=== PATIENT | female | born 1985 | race Caucasian/White ===

== ENCOUNTER 2016-03-14 08:19 | Inpatient (IN) | payer OTHER ==
[~2016-03-14] VITALS: Ht 170.2 cm; Wt 86.6 kg
[~2016-03-14 08:19] MED LIST: ALBU18HF INHALATION; BEN25 PO; DENIES MEDS; EPIN0.3P4 INJ; FAMO-18 PO; PRED20TA PO
[2016-03-14 08:34] LABS: URINE BLOOD (Dip) POC 2+ (NEGATIVE)
[2016-03-14] MEDS ORDERED: SOD CHLORIDE 0.9% 1,000 ML IV STA (08:37)
[2016-03-14] MEDS ORDERED: ONDANSETRON 4 MG INJ IV STA (08:37)
--- NOTE | 2016-03-14 08:37 | ERD ---
ER Documentation Chief Complaint Date/Time DATE: 03/14/16 TIME: 08:25 Chief Complaint GENERALIZED AP STARTED LAST NIGHT HPI 30 y/o female presents to ED for epigastric pain, vomiting that started last night at around 10 PM. Patient stated that her pain is was described as sharp nonradiating 10/10 in rate. Vomited "a lot of times." Patient unable to state number of times she vomited. Unable to state the appearance of her vomitus. She also reports that her symptoms started after eating a home cooked food with meat that is mixed with rice. Also has difficulty walking due to pain. She also added that she felt like she has chills last night but never took her temperature. Did not take any pain medications for her pain. Denies headache, loss of consciousness, dizziness, blurry vision, changes in vision, photophobia, facial pain, ear pain, throat pain, difficulty swallowing, neck pain, shoulder pain, chest pain, cough, hemoptysis, back pain, loss of appetite, hematochezia, diarrhea, constipation, urinary symptoms, , the possibility of being , bladder and bowel incontinences, extremity weakness, extremity tenderness, numbness or tingling sensation, recent travel, recent exposure to illness, recent antibiotic use in the last 3 months, fever. Allergy: NKA PMH: Asthma Family medical history: Denies AO with 1 miscarriage. LMP: "I am on my period right now." Has an IUD. Medications: Albuterol puff. States that she has not used this in a while. Surgery: Cholecystectomy. Primary Social History: Works as a [employer]. Denies smoking, use of alcohol, use of illegal drugs. ROS All systems reviewed and are negative except as per history of present illness. Medications Home Meds Active Scripts Famotidine* (Pepcid*) 20 Mg Tablet, 20 MG PO BID, #30 TAB Prov:GARY HENSON PA-C 11/12/15 Diphenhydramine Hcl* (Benadryl*) 25 Mg Cap, 25 MG PO Q6, #30 CAP Prov:GARY HENSON PA-C 11/12/15 Epinephrine (Epipen 2-Tyree) 0.3 Mg/0.3 Ml Pen.injctr, 1 EA INJ ONCE Y for ALLERGIC REACTION, #1 EA Prov:GARY HENSON PA-C 11/12/15 Prednisone* (Prednisone*) 20 Mg Tab, 40 MG PO DAILY for 5 Days, TAB Prov:GARY HENSON PA-C 11/12/15 Albuterol Sulfate* (Ventolin HFA*) 18 Gm Hfa.aer.ad, 2 PUFF INHALATION Q4H, #1 INHALER Prov:GARY HENSON PA-C 11/12/15 Reported Medications [Denies Meds] No Conflict Check 07/16/10 Allergies Allergies: Coded Allergies: No Known Drug Allergy (Verified Allergy, Mild, 07/16/10) PMhx/Soc History of Surgery: No Anesthesia Reaction: No Hx Neurological Disorder: No Hx Respiratory Disorders: Yes (Asthma) Hx Cardiac Disorders: No Hx Psychiatric Problems: No Hx Miscellaneous Medical Probl: No Hx Alcohol Use: Yes Hx Substance Use: Yes (THC this week) Hx Tobacco Use: Yes FmHx Denies Physical Exam Vitals Vital Signs Date Time Temp Pulse Resp B/P Pulse Ox O2 Delivery O2 Flow Rate FiO2 03/14/16 08:23 98.0 101 18 134/81 99 Physical Exam CONSTITUTIONAL: Well-appearing; well-nourished; in no apparent distress. HEAD: Normocephalic; atraumatic. EYES: Conjunctiva clear, sclera non-icteric, EOM intact. PERRL Ears: Hearing intact. EACs clear, TMs non-bulging, non-inflamed, translucent & mobile, ossicles normal appearance, No obstructions, no erythema, no discharges Nose: No obstructions. No polyps. No external lesions. Mucosa non-inflamed. No external lesions, septum and turbinates normal. No rhinorrhea. No discharges. Frontal sinus is non-tender to palpation. Maxillary sinus is non-tender to palpation. MOUTH: Moist mucous membranes, no lesion, no obstructions, no vesicles, no thrush, patent airway Throat: Uvula in midline. Right tonsil is +1 with no erythema, no exudate. Left tonsil is +1 with no erythema, no exudate. Tolerating secretions well. Good gag reflex. Patent airway. Neck: Supple, without lesions, bruits, or adenopathy. No mass. Thyroid non- enlarged and non-tender to palpation. CHEST: Symmetrical chest. Respirations even and not labored. No retractions noted. CARDIOVASCULAR: Normal S1, S2. RRR. No murmurs, gallops. RESPIRATORY: Normal chest excursion with respiration; breath sounds clear and equal bilaterally; no wheezes, rhonchi, or rales. Breathing even and unlabored. Speaking in clear, full, and complete sentences w/ ease. ABDOMEN: Normal bowel sounds normal. Soft, round, non-distended, non-guarding, no rebound, no organomegaly, no masses, no pulsating abdominal mass. No hernia. No peritoneal signs. Tenderness to epigastric area area and right lower abdominal area to light and deep palpation. : No CVA tenderness. BACK: Symmetrical shoulder. Spine is midline without deformity, tenderness. No evidence of trauma or deformity. PELVIS: Stable pelvis. No evidence of trauma or deformity. MUSCULOSKELETAL: Normal gait and station. No misalignment, asymmetry, crepitation, defects, tenderness, masses, effusions, decreased range of motion, instability, atrophy or abnormal strength or tone in the head, neck, spine, ribs , pelvis or extremities. No calf tenderness. NEUROVASCULAR: Distal pulses are present. Pedal pulse are present, equal, and normal. Capillary refills are < 2 seconds. NEUROLOGIC: Alert and oriented x4. Speaks full and clear sentences. Cranial Nerves II-XII normal. Sensation to pain, touch, and proprioception normal. Grossly unremarkable. No neurologic deficits. Romberg test is negative. PSYCHOLOGICAL: The patients mood and manner are appropriate. No hallucinations , delusions. Not SI. Not HI. Has the capacity to decide for self SKIN: Normal for age and ethnicity; warm; dry; good turgor; no apparent lesions or exudates. No rashes, hives, discoloration. Intact. Result Diagram: 03/14/16 0900 Results 24 hrs Laboratory Tests Test 03/14/16 08:35 03/14/16 09:00 Bedside Urine Blood 2+ Bedside Urine Glucose (UA) Negative Bedside Urine Ketones (LAB) Negative Bedside Urine Leukocyte Esterase (L Trace Bedside Urine Nitrite (LAB) Negative Bedside Urine Protein (LAB) 3+ Bedside Urine pH (LAB) >=9.0 Basophils # 0.010^3/ul Basophils % 0.2% Eosinophils # 0.010^3/ul Eosinophils % 0.1% Hematocrit 43.0% Hemoglobin 14.5g/dl Lymphocytes # 1.210^3/ul Lymphocytes % 11.1% Mean Corpuscular Hemoglobin 29.5pg Mean Corpuscular Hemoglobin Concent 33.6g/dl Mean Corpuscular Volume 87.8fl Mean Platelet Volume 9.3fl Monocytes # 0.310^3/ul Monocytes % 2.9% Neutrophils # 9.010^3/ul Neutrophils % 85.7% Nucleated Red Blood Cells # 0.010^3/ul Nucleated Red Blood Cells % 0.0/100WBC Platelet Count 30670^3/UL Red Blood Count 4.9010^6/ul Red Cell Distribution Width 13.8% White Blood Count 10.510^3/ul Current Medications Medications (Trade) Dose Ordered Sig/Lori Route PRN Reason Start Time Stop Time Status Last Admin Dose Admin Sodium Chloride (NS) 1,000 ml @ 1,000 mls/hr Q1H STAT IV 03/14/16 08:37 03/14/16 09:36 DC 03/14/16 08:47 Ondansetron HCl (Zofran Inj) 4 mg ONCE STAT IV 03/14/16 08:37 03/14/16 08:41 DC 03/14/16 08:46 Procedures/MDM Examination: Unremarkable examination except epigastric tenderness, right lower abdominal tenderness, difficulty walking due to pain. Case and medical management was discussed with supervising doctor. He agreed with present treatment and after care. Disease process, medical treatment was explained to the patient and family member. They verbalized understanding and agreed with the diagnostic tests, medical treatment, and follow-up care. Radiology: FINDINGS: The lung bases are clear of any infiltrate or nodule. No effusion is seen. The liver is of normal size, contour and attenuation with no mass or ductal dilatation. Gallbladder has been removed. No splenic, adrenal or pancreatic abnormalities present. Kidneys are of normal size and contour. No hydronephrosis, calculus or masses seen. Ureters are of normal course and caliber with no stone. No bladder mass or stone is present. IUD is present within the endometrial canal. No adnexal mass is seen. There is no aneurysm. No adenopathy is present. No bowel mass is visualized. The colon and rectum are decompressed. Noted is a long segment of moderate to severely distended small bowel. There is fecalization with a smooth sharply demarcated transition present anterior to the sacrum on image 105 series 3. No bowel mass is visualized. The ileum is decompressed. The appendix is not confidently visualized, however, no inflamed appendix is noted. No phlegmon, ascites or pneumoperitoneum is present. The osseous structures are intact. IMPRESSION: Mid to distal small bowel obstruction as above. Post cholecystectomy. POC urine : Negative Urinalysis: Treatment: 1 L of normal saline IV. 4 mg of Zofran IV. Re-evaluation: Consultation: None Differential diagnosis: Appendicitis versus ovarian torsion versus ovarian cyst versus small bowel obstruction versus diverticulosis versus diverticulitis versus epigastric pain versus pancreatitis versus gastritis Medical decision [id number] y/o female presents to ED for epigastric pain with vomiting. Final diagnosis small bowel obstruction. Endorse to Dr. Bo Thomas, who accepted the care. Departure Condition: Stable SHANKAR RIDDLE Mar 14, 2016 08:37
--- NOTE | 2016-03-14 09:31 | RADRPT ---
PROCEDURE: CT abdomen and pelvis without contrast. CLINICAL INDICATION: Abdominal Pain TECHNIQUE: CT scan of the abdomen and pelvis without contrast was performed and is reconstructed a t 5 mm contiguous axial intervals from the dome of the diaphragm to the inferior pubic rami.. The p atient was scanned without intravenous contrast. Sagittal and coronal reformatted images were obtai dayo from the axial source images. The calculated radiation dose measures 1094 mGy centimeters. The C TDI measures 420 mGy. COMPARISON: None. FINDINGS: The lung bases are clear of any infiltrate or nodule. No effusion is seen. The liver is of normal size, contour and attenuation with no mass or ductal dilatation. Gallbladder has been removed. No splenic, adrenal or pancreatic abnormalities present. Kidneys are of normal size and contour. No hydronephrosis, calculus or masses seen. Ureters are o f normal course and caliber with no stone. No bladder mass or stone is present. IUD is present with in the endometrial canal. No adnexal mass is seen. There is no aneurysm. No adenopathy is present. No bowel mass is visualized. The colon and rectum are decompressed. Noted is a long segment of mod erate to severely distended small bowel. There is fecalization with a smooth sharply demarcated tra nsition present anterior to the sacrum on image 105 series 3. No bowel mass is visualized. The ile um is decompressed. The appendix is not confidently visualized, however, no inflamed appendix is no terrence. No phlegmon, ascites or pneumoperitoneum is present. The osseous structures are intact. IMPRESSION: Mid to distal small bowel obstruction as above. Post cholecystectomy. .Alonso Henson MD, Date Time Electronically viewed and signed by .Alonso Henson MD, MD on 03/14/2016 09:30 .A/
[2016-03-14 09:33] LABS: BASOPHILS % 0.2 % (0.0-2.0); EOSINOPHILS % 0.1 % (0.0-7.0); HEMOGLOBIN 14.5 g/dl (12.0-16.0); LYMPHOCYTES # 1.2 10^3/ul (0.8-2.9); LYMPHOCYTES % 11.1 % (15.0-51.0); MEAN CORPUSCULAR HEMOGLOBIN 29.5 pg (29.0-33.0); MEAN CORPUSCULAR HGB CONC 33.6 g/dl (32.0-37.0); MEAN CORPUSCULAR VOLUME 87.8 fl (82.0-101.0); MEAN PLATELET VOLUME 9.3 fl (7.4-10.4); MONOCYTE # 0.3 10^3/ul (0.3-0.9); MONOCYTES % 2.9 % (0.0-11.0); NEUTROPHILS % 85.7 % (39.0-77.0); PLATELET COUNT 388 10^3/UL (140-440); RED CELL DISTRIBUTION WIDTH 13.8 % (11.5-14.5); UNCORRECTED WBC 10.5 10^3/ul (4.8-10.8); WHITE BLOOD COUNT 10.5 10^3/ul (4.8-10.8)
[2016-03-14 09:34] LABS: ADD UMIC YES; URINE BILIRUBIN (Dip) NEGATIVE (NEGATIVE); URINE BLOOD (Dip) 2+ (NEGATIVE); URINE COLOR LT. YELLOW (YELLOW); URINE GLUCOSE (Dip) NEGATIVE (NEGATIVE); URINE KETONES (Dip) NEGATIVE (NEGATIVE); URINE LEUKOCYTE ESTERASE (Dip) TRACE (NEGATIVE); URINE NITRITE (Dip) NEGATIVE (NEGATIVE); URINE TOTAL PROTEIN (Dip) 2+ (NEGATIVE); URINE UROBILINOGEN (Dip) 1.0 E.U./dL (0.1-1.0)
[2016-03-14 09:41] LABS: CONDITION 1
[2016-03-14] MEDS ORDERED: morphine 4 MG/ML VIAL IV STA ×2 (09:43→11:03)
[2016-03-14 09:49] LABS: ALBUMIN 4.7 g/dl (3.3-4.9)
[2016-03-14 09:50] LABS: POTASSIUM 4.4 mmol/L (3.5-5.1)
[2016-03-14 09:52] LABS: ALBUMIN/GLOBULIN RATIO 1.14; BILIRUBIN,INDIRECT 0.5 mg/dl (0-1.1); BILIRUBIN,TOTAL 0.5 mg/dl (0.2-1.3); CALCIUM 9.7 mg/dl (8.4-10.2); CREATININE 0.65 mg/dl (0.44-1.00); TOTAL PROTEIN 8.8 g/dl (6.1-8.1)
[2016-03-14 10:02] LABS: BACTERIA,URINE FEW; URINE RBCS 0-2 /HPF (0)
[2016-03-14 10:03] LABS: MUCUS,URINE FEW
[2016-03-14] MEDS ORDERED: LIDOCAINE 2% JELLY 5 ML TOP ONE (10:30)
[2016-03-14 11:26] VITALS: TEMP 98.7
[2016-03-14] MEDS ORDERED: morphine 2 MG INJ IV PRN (11:30)
[2016-03-14] MEDS ORDERED: MAGNESIUM HYDROXIDE 30ML CUP PO PRN (11:30)
[2016-03-14] MEDS ORDERED: BISACODYL 10 MG SUPP PR PRN (11:30)
[2016-03-14] MEDS ORDERED: DOCUSATE SODIUM 100 MG CAP PO PRN (11:30)
[2016-03-14] MEDS ORDERED: NACL 0.9% 3 ML SYG IV SCH (11:30)
[2016-03-14] MEDS ORDERED: HYDROCODONE/APAP (5/325) TAB PO PRN ×2 (11:30)
[2016-03-14] MEDS ORDERED: ACETAMINOPHEN 650 MG SUPP PR PRN (11:30)
[2016-03-14] MEDS ORDERED: ACETAMINOPHEN 325 MG TAB PO PRN (11:30)
--- NOTE | 2016-03-14 11:35 | EN ---
Date/Time of Note Date/Time of Note DATE: 03/14/16 TIME: 11:31 ER Progress Note HPI: 30-year-old woman presents with 2-3 days of multiple episodes of vomiting and abdominal cramping. She feels dehydrated. CT scan of the abdomen and pelvis was just performed revealing mid to distal small bowel obstruction. She denies fevers or chills, no melena or blood per rectum, no chest pain or shortness of breath. Last meal was over 12 hours ago. Past medical history: Surgical history of cholecystectomy and previous small bowel obstruction treated surgically at 8 months of age Physical exam: GENERAL: Well-developed, well-nourished, moderate discomfort, afebrile HEENT: Moist mucous membranes, pink conjunctiva, no cervical spine tenderness or step-off deformities, no goiter, no jaundice or icterus, extraocular movements intact without pain. No submandibular induration, and no pharyngeal erythema NEURO: Alert and oriented 3, cranial nerves II through XII intact bilaterally, pupils equal round reactive to light, no focal deficits or facial asymmetry, sensation intact distally Strength 5/5 in upper and lower extremities bilaterally CARDIAC: Regular rate and rhythm, no murmurs rubs or gallops LUNGS: Clear bilaterally no wheezing crackles or stridor ABDOMEN: Tender to touch with voluntary guarding, no rigidity, no rebound, no psoas sign no obturator sign. Normoactive bowel sounds SKIN: Warm and dry to touch, no abrasions, contusions, or hematomas, no lacerations, no ecchymosis, no target lesions, and without ulcers EXTREMITIES: No clubbing cyanosis or edema, calves are bilaterally symmetrical, no Homans sign, no popliteal cord sign. Distal pulses equal and bilateral PSYCH: Normal affect without agitation or irritability Medical decision making: IV line was established patient was placed on cardiac technician rhythm strip revealed a sinus rhythm at about 70 bpm with upright P and T waves. Patient was treated with IV fluids, morphine 4 mg IV and Zofran 4 mg. EKG performed, read by me: 73 bpm, normal sinus rhythm, normal axis, no acute ST segment changes, narrow QRS complex, with good R-wave progression in precordial leads. I spoke to the on-call surgeon regarding the patient's presentation and symptomatology he agreed to see the patient. NG tube was ordered by me and placed successfully. Connected to intermittent suction. Patient will be admitted to [facility] under hospitalist team. Diagnostic impression: #1 acute small bowel obstruction 2. Intractable vomiting MISHA SMITH MD Mar 14, 2016 11:35
[2016-03-14 11:47] VITALS: BP 132/75; RESP 20
[2016-03-14] MEDS: ONDANSETRON 4 MG INJ IV PRN ×2 (12:00→19:19)
[2016-03-14] MEDS: D5W-0.45 NACL + KCL 20 MEQ 1,000 ML IV SCH ×3 (12:45→22:08)
--- NOTE | 2016-03-14 12:50 | CONS ---
Date/Time of Note Date/Time of Note DATE: 03/14/16 TIME: 12:44 Assessment/Plan Assessment/Plan Chief Complaint/Hosp Course 30-year-old female with small bowel obstruction likely secondary to adhesions from prior surgery * Patient is currently comfortable, therefore, we'll continue with conservative management * Continue NG tube, IV fluid hydration, pain control as needed * Will order a small bowel follow-through Discussed the above with the patient, nurse and primary care team. Discussed the possibility for surgical intervention in cases of failure of conservative management. The patient understands and agrees to treatment plan as outlined. Further recommendations will be made based on the patient's clinical course and results of diagnostic studies. 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 The patient states her pain started at approximately 10 PM the night before admission. She described it as being located in the epigastric area. It was associated with multiple episodes of nonbilious vomiting. She states her last bowel movement was yesterday. She denies any fever/chills. She denies any prior episodes similar pain in the past. On arrival to the emergency room a CT scan of the abdomen and pelvis showed findings consistent with small bowel obstruction. Nasogastric tube has been placed. She states she has had an improvement in her abdominal pain since placement of the NG tube. A 14 point review systems was conducted and was negative except for that which is mentioned in history of present illness. Past Medical History As mentioned in history of present illness Past Surgical History Past Surgical Hx: cholecystectomy, other (abdominal surgery for volvulus as an 8-month-old) Family History Significant Family History: no pertinent family hx Social History Smoking Status: Current every day smoker Exam/Review of Systems Vital Signs Vitals Vital Signs Date Time Temp Pulse Resp B/P Pulse Ox O2 Delivery O2 Flow Rate FiO2 03/14/16 11:47 98.6 91 20 132/75 98 03/14/16 11:26 Room Air Exam GENERAL: Awake, alert, oriented 3. No acute distress. SKIN: No jaundice. HEENT: PERRLA, EOMI, No Scleral Icterus. Nasogastric tube is in place with scant drainage. NECK: Supple without JVD CARDIOVASCULAR: S1S2, regular rate and rhythm. No murmurs appreciated. RESPIRATORY: Clear to auscultation bilaterally. ABDOMEN: Soft, bowel sounds hypoactive, nondistended, nontender to palpation. EXTREMITIES: Free range of motion 4. No cyanosis, edema, or clubbing. NEUROLOGIC: Cranial nerves II-XII are intact. Sensation is intact grossly. Results Result Diagram: 03/14/16 0900 03/14/16 0900 Results 24 hrs Laboratory Tests Test 03/14/16 08:35 03/14/16 09:00 Bedside Urine Blood 2+ H Bedside Urine Glucose (UA) Negative Bedside Urine Ketones (LAB) Negative Bedside Urine Leukocyte Esterase (L Trace H Bedside Urine Nitrite (LAB) Negative Bedside Urine Protein (LAB) 3+ H Bedside Urine pH (LAB) >=9.0 Alanine Aminotransferase (ALT/SGPT) 37 Albumin 4.7 Albumin/Globulin Ratio 1.14 Alkaline Phosphatase 82 Anion Gap 19 H Aspartate Amino Transf (AST/SGOT) 37 Basophils # 0.0 Basophils % 0.2 Blood Urea Nitrogen 11 Calcium Level 9.7 Carbon Dioxide Level 29 Chloride Level 99 Creatinine 0.65 Direct Bilirubin 0.00 Eosinophils # 0.0 Eosinophils % 0.1 Globulin 4.10 H Glucose Level 121 Hematocrit 43.0 Hemoglobin 14.5 Indirect Bilirubin 0.5 Lipase 44 Lymphocytes # 1.2 Lymphocytes % 11.1 L Mean Corpuscular Hemoglobin 29.5 Mean Corpuscular Hemoglobin Concent 33.6 Mean Corpuscular Volume 87.8 Mean Platelet Volume 9.3 Monocytes # 0.3 Monocytes % 2.9 Neutrophils # 9.0 H Neutrophils % 85.7 H Nucleated Red Blood Cells # 0.0 Nucleated Red Blood Cells % 0.0 Platelet Count 388 Potassium Level 4.4 Red Blood Count 4.90 Red Cell Distribution Width 13.8 Sodium Level 143 Total Bilirubin 0.5 Total Protein 8.8 H Urine Bacteria FEW Urine Bilirubin NEGATIVE Urine Clarity CLEAR Urine Color LT. YELLOW Urine Epithelial Cells FEW Urine Glucose NEGATIVE Urine Hemoglobin 2+ H Urine Ketones NEGATIVE Urine Leukocyte Esterase TRACE H Urine Microscopic RBC 0-2 Urine Microscopic WBC 0-2 Urine Mucus FEW Urine Nitrite NEGATIVE Urine Specific [place] 1.010 Urine Total Protein 2+ H Urine Urobilinogen 1.0 E.U./dL Urine pH 8.5 White Blood Count 10.5 Medications Medications Current Medications Potassium Chloride/Dextrose/ Sod Cl (D5-1/2ns + KCl 20 Meq) 1,000 ml @ 75 mls/ hr [id number] IV ; Start 03/14/16 at 11:18 Ondansetron HCl (Zofran Inj) 4 mg Q6H PRN IV NAUSEA AND/OR VOMITING Last administered on 03/14/16t 12:00; Admin Dose 4 MG; Start 03/14/16 at 11:30 Acetaminophen (Tylenol Tab) 650 mg Q6H PRN PO PAIN LEVEL 1-3 OR FEVER; Start at 11:30 Acetaminophen (Tylenol Supp) 650 mg Q6H PRN [place] PAIN LEVEL 1-3 OR FEVER; Start 03/14/16 at 11:30 Acetaminophen/ Hydrocodone Bitart ([place] (5/325)) 1 tab Q6H PRN PO MODERATE PAIN LEVEL 4-6; Start 03/14/16 at 11:30 Acetaminophen/ Hydrocodone Bitart ([place] (5/325)) 2 tab Q6H PRN PO SEVERE PAIN LEVEL 7-10; Start 03/14/16 at 11:30 Morphine Sulfate (morphine) 2 mg Q4H PRN IV SEVERE PAIN LEVEL 7-10; Start 03/14 at 11:30 Bisacodyl (Dulcolax Supp) 10 mg DAILY PRN [place] CONSTIPATION; Start 03/14/16 at 11 :30 Pantoprazole (Protonix Iv) 40 mg DAILY@06 IV ; Start 03/15/16 at 06:00 Procedures Procedures PROCEDURE: CT abdomen and pelvis without contrast. CLINICAL INDICATION: Abdominal Pain TECHNIQUE: CT scan of the abdomen and pelvis without contrast was performed and is reconstructed at 5 mm contiguous axial intervals from the dome of the diaphragm to the inferior pubic rami.. The patient was scanned without intravenous contrast. Sagittal and coronal reformatted images were obtained from the axial source images. The calculated radiation dose measures 1094 mGy centimeters. The CTDI measures 420 mGy. COMPARISON: None. FINDINGS: The lung bases are clear of any infiltrate or nodule. No effusion is seen. The liver is of normal size, contour and attenuation with no mass or ductal dilatation. Gallbladder has been removed. No splenic, adrenal or pancreatic abnormalities present. Kidneys are of normal size and contour. No hydronephrosis, calculus or masses seen. Ureters are of normal course and caliber with no stone. No bladder mass or stone is present. IUD is present within the endometrial canal. No adnexal mass is seen. There is no aneurysm. No adenopathy is present. No bowel mass is visualized. The colon and rectum are decompressed. Noted is a long segment of moderate to severely distended small bowel. There is fecalization with a smooth sharply demarcated transition present anterior to the sacrum on image 105 series 3. No bowel mass is visualized. The ileum is decompressed. The appendix is not confidently visualized, however, no inflamed appendix is noted. No phlegmon, ascites or pneumoperitoneum is present. The osseous structures are intact. IMPRESSION: Mid to distal small bowel obstruction as above. Post cholecystectomy. .Alonso Henson MD, MD Date Time Electronically viewed and signed by .Alonso Henson MD, on 03/14/2016 09: 30 .A/ CC: SHANKAR RIDDLE,KILO Saul MD Mar 14, 2016 12:50
[2016-03-14] MEDS ORDERED: SOD CHLORIDE 0.9% 1,000 ML IV ONE (13:00)
--- NOTE | 2016-03-14 13:21 | HP ---
Date/Time of Note Date/Time of Note DATE: 03/14/16 TIME: 13:18 Assessment/Plan VTE Prophylaxis VTE Prophylaxis Intervention: SCD's Assessment/Plan Chief Complaint/Hosp Course Assessment and plan 1. Small bowel obstruction. Patient did have abdominal radiograph with findings consistent with small bowel obstruction. Surgeon consulted. Continue patient npo for now. Tentative plan for small bowel follow-through. 2. Abdominal pain secondary to #1. We'll provide with analgesics as needed GERD prophylaxis: PPI DVT prophylaxis: SCDs and early ambulation Admission process time is 40 minutes Discussed plan of care with Dr. 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 Upon. Patient she had sudden sharp abdominal pain after dinner last night. Reports she was eating home food and shortly after started to have sharp pains in her stomach that was diffuse. She did have reported emesis associated with it nonbilious nonbloody. She did report also some subjective chills. She did go to [facility] for further evaluation. Upon examination she had a CT scan of her abdomen that did show mid to distal small bowel obstruction. Her CBC and BMP was otherwise unremarkable. She did remain afebrile. Currently the patient does have nasogastric place. She is continued on IV fluids. We will alert her for the aforementioned issues ROS 12 point review of systems obtained and entirely negative except that mentioned in history of present illness PMH/Family/Social Past Medical History cholecystectomy, small bowel volvulus and hand tool lapper, Past Surgical History Past Surgical Hx: cholecystectomy, other (abdominal surgery for volvulus as an 8-month-old) Family History Significant Family History: no pertinent family hx Social History Alcohol Use: none Smoking Status: Unknown if ever smoked Drug Use: none Exam/Review of Systems Vital Signs Vitals Vital Signs Date Time Temp Pulse Resp B/P Pulse Ox O2 Delivery O2 Flow Rate FiO2 03/14/16 11:47 98.6 91 20 132/75 98 03/14/16 11:26 Room Air Exam Exam General: No acute signs or symptoms of distress Eyes: pupils equal round, Anicteric sclera Neck: Supple nontender, no JVD Cardiac: S1, S2 auscultated, regular rhythm and rate Pulmonary: No coarse rhonchi or breathing auscultated GI: Nasogastric tube in place Extremities: No edema bilateral lower extremities Skin: Clean dry and intact Neurologic: Alert to person place and time and situation Labs Result Diagram: 03/14/16 0900 03/14/16 0900 Medications Medications Current Medications Potassium Chloride/Dextrose/ Sod Cl (D5-1/2ns + KCl 20 Meq) 1,000 ml @ 125 mls/ hr Q8H IV Last administered on 03/14/16 12:45; Admin Dose 75 MLS/HR; Start at 11:18 Ondansetron HCl (Zofran Inj) 4 mg Q6H PRN IV NAUSEA AND/OR VOMITING Last administered on 03/14/16 12:00; Admin Dose 4 MG; Start 03/14/16 at 11:30 Acetaminophen (Tylenol Tab) 650 mg Q6H PRN PO PAIN LEVEL 1-3 OR FEVER; Start at 11:30 Acetaminophen (Tylenol Supp) 650 mg Q6H PRN [place] PAIN LEVEL 1-3 OR FEVER; Start 03/14/16 at 11:30 Acetaminophen/ Hydrocodone Bitart ([place] (5/325)) 1 tab Q6H PRN PO MODERATE PAIN LEVEL 4-6; Start 03/14/16 at 11:30 Acetaminophen/ Hydrocodone Bitart ([place] (5/325)) 2 tab Q6H PRN PO SEVERE PAIN LEVEL 7-10; Start 03/14/16 at 11:30 Morphine Sulfate (morphine) 2 mg Q4H PRN IV SEVERE PAIN LEVEL 7-10; Start 03/14 at 11:30 Bisacodyl (Dulcolax Supp) 10 mg DAILY PRN [place] CONSTIPATION; Start 03/14/16 at 11 :30 Pantoprazole 40 mg 40 mg DAILY@06 IV ; Start 03/15/16 at 06:00 Sodium Chloride (NS) 1,000 ml @ 2,000 mls/hr Q30M ONCE IV ; Start 03/14/16 at 13:00; Stop 03/14/16 at 13:29 FLAKITA CHUNG Mar 14, 2016 13:21
[2016-03-14 13:30] LABS: INR 0.91; PROTIME 12.3 Sec (12.2-14.2)
[2016-03-14 15:08] VITALS: Ht 170.2 cm; Wt 86.6 kg
[2016-03-14 19:45] VITALS: BP 128/77; RESP 16
[2016-03-15] MEDS: D5W-0.45 NACL + KCL 20 MEQ 1,000 ML IV SCH ×4 (03:56→23:16)
[2016-03-15] MEDS: PANTOPRAZOLE 40 MG INJ IV SCH (05:26)
[2016-03-15 06:14] LABS: ALBUMIN 3.6 g/dl (3.3-4.9)
[2016-03-15 06:15] LABS: POTASSIUM 3.9 mmol/L (3.5-5.1)
[2016-03-15 06:17] LABS: ALBUMIN/GLOBULIN RATIO 1.24; BILIRUBIN,INDIRECT 0.5 mg/dl (0-1.1); BILIRUBIN,TOTAL 0.5 mg/dl (0.2-1.3); CREATININE 0.66 mg/dl (0.44-1.00); TOTAL PROTEIN 6.5 g/dl (6.1-8.1)
[2016-03-15 06:18] LABS: CALCIUM 8.6 mg/dl (8.4-10.2); CHOL/HDL RATIO 4.8 RATIO; PHOSPHORUS 3.6 mg/dl (2.5-4.9)
[2016-03-15 06:35] LABS: T3 UPTAKE 32.2 % (23.5-40.5)
[2016-03-15 06:49] LABS: THYROID STIMULATING HORMONE 1.26 MIU/L (0.465-4.680)
[2016-03-15 06:51] LABS: BASOPHILS % 0.3 % (0.0-2.0); EOSINOPHILS # 0.1 10^3/ul (0.0-0.5); EOSINOPHILS % 0.9 % (0.0-7.0); HEMATOCRIT 35.6 % (37.0-47.0); HEMOGLOBIN 11.8 g/dl (12.0-16.0); LYMPHOCYTES # 2.2 10^3/ul (0.8-2.9); LYMPHOCYTES % 27.8 % (15.0-51.0); MEAN CORPUSCULAR HEMOGLOBIN 29.7 pg (29.0-33.0); MEAN CORPUSCULAR HGB CONC 33.1 g/dl (32.0-37.0); MEAN CORPUSCULAR VOLUME 89.5 fl (82.0-101.0); MEAN PLATELET VOLUME 8.9 fl (7.4-10.4); MONOCYTE # 0.7 10^3/ul (0.3-0.9); MONOCYTES % 9.1 % (0.0-11.0); NEUTROPHIL # 4.9 10^3/ul (1.6-7.5); NEUTROPHILS % 61.9 % (39.0-77.0); PLATELET COUNT 334 10^3/UL (140-440); RED BLOOD COUNT 3.98 10^6/ul (4.20-5.40); RED CELL DISTRIBUTION WIDTH 13.8 % (11.5-14.5); UNCORRECTED WBC 7.8 10^3/ul (4.8-10.8); WHITE BLOOD COUNT 7.8 10^3/ul (4.8-10.8)
[2016-03-15 06:58] LABS: CONDITION 1
[2016-03-15 08:50] VITALS: BP 120/82; PULSE 70; RESP 18
[2016-03-15] MEDS ORDERED: DIATR MEGLU/DIATRIZOATE SODIUM 120 ML BTL ONE (08:59)
--- NOTE | 2016-03-15 10:55 | PN ---
Date/Time of Note Date/Time of Note DATE: 03/15/16 TIME: 10:54 Assessment/Plan VTE Prophylaxis VTE Prophylaxis Intervention: SCD's Lines/Catheters IV C[facility]ter Type (from [facility]): Peripheral IV Urinary Cath still in place: No Assessment/Plan Chief Complaint/Hosp Course Assessment and plan 1. Small bowel obstruction. Patient did have abdominal radiograph with findings consistent with small bowel obstruction. Surgeon consulted. Continue patient npo for now. Plan small bowel follow-through today. 2. Abdominal pain secondary to #1. We'll provide with analgesics as needed GERD prophylaxis: PPI DVT prophylaxis: SCDs and early ambulation Disposition and plan: Plan for small bowel follow-through. We'll follow-up. Continue with surgeon recommendations. Discussed plan of care with Dr. Toney Problems: Subjective 24 Hr Interval Summary Free Text/Dictation No reports of abdominal pain at this time Exam/Review of Systems Vital Signs Vitals Vital Signs Date Time Temp Pulse Resp B/P Pulse Ox O2 Delivery O2 Flow Rate FiO2 03/15/16 08:50 97.2 70 18 120/82 99 Room Air Intake and Output 03/14/16 03/14/16 03/15/16 15:00 23:00 07:00 Intake Total 2960 ml 1000 ml Output Total 1450 ml Balance 2960 ml -450 ml Exam General: No acute signs or symptoms of distress Eyes: pupils equal round, Anicteric sclera Neck: Supple nontender, no JVD Cardiac: S1, S2 auscultated, regular rhythm and rate Pulmonary: No coarse rhonchi or breathing auscultated GI: Nasogastric tube in place Extremities: No edema bilateral lower extremities Skin: Clean dry and intact Neurologic: Alert to person place and time and situation Results Result Diagram: 03/15/16 0525 03/15/16 0525 Results 24 hrs Laboratory Tests Test 03/14/16 11:58 03/15/16 05:25 INR International Normalized Ratio 0.91 Prothrombin Time 12.3 Prothrombin Time Ratio 1.0 Alanine Aminotransferase (ALT/SGPT) 44 Albumin 3.6 # Albumin/Globulin Ratio 1.24 Alkaline Phosphatase 60 Anion Gap 14 Aspartate Amino Transf (AST/SGOT) 30 Basophils # 0.0 Basophils % 0.3 Blood Urea Nitrogen 8 Calcium Level 8.6 Carbon Dioxide Level 29 Chloride Level 103 Cholesterol Level 164 Cholesterol/HDL Ratio 4.8 Creatinine 0.66 Direct Bilirubin 0.00 Eosinophils # 0.1 Eosinophils % 0.9 Free Thyroxine Index 2.22 Globulin 2.90 Glucose Level 101 HDL Cholesterol 34 Hematocrit 35.6 L Hemoglobin 11.8 L Indirect Bilirubin 0.5 LDL Cholesterol, Calculated 98 Lymphocytes # 2.2 Lymphocytes % 27.8 Magnesium Level 2.0 Mean Corpuscular Hemoglobin 29.7 Mean Corpuscular Hemoglobin Concent 33.1 Mean Corpuscular Volume 89.5 Mean Platelet Volume 8.9 Monocytes # 0.7 Monocytes % 9.1 Neutrophils # 4.9 Neutrophils % 61.9 Nucleated Red Blood Cells # 0.0 Nucleated Red Blood Cells % 0.0 Phosphorus Level 3.6 Platelet Count 334 Potassium Level 3.9 Red Blood Count 3.98 L Red Cell Distribution Width 13.8 Sodium Level 142 Thyroid Stimulating Hormone (TSH) 1.260 Thyroxine (T4) 6.9 Total Bilirubin 0.5 Total Protein 6.5 # Triglycerides Level 159 H Triiodothyronine (T3) Uptake 32.2 White Blood Count 7.8 # Medications Medications Current Medications Potassium Chloride/Dextrose/ Sod Cl (D5-1/2ns + KCl 20 Meq) 1,000 ml @ 125 mls/ hr Q8H IV Last administered on 03/15/16 06:41; Admin Dose 125 MLS/HR; Start at 11:18 Ondansetron HCl (Zofran Inj) 4 mg Q6H PRN IV NAUSEA AND/OR VOMITING Last administered on 03/14/16 19:19; Admin Dose 4 MG; Start 03/14/16 at 11:30 Acetaminophen (Tylenol Tab) 650 mg Q6H PRN PO PAIN LEVEL 1-3 OR FEVER; Start at 11:30 Acetaminophen (Tylenol Supp) 650 mg Q6H PRN [place] PAIN LEVEL 1-3 OR FEVER; Start 03/14/16 at 11:30 Acetaminophen/ Hydrocodone Bitart ([place] (5/325)) 1 tab Q6H PRN PO MODERATE PAIN LEVEL 4-6; Start 03/14/16 at 11:30 Acetaminophen/ Hydrocodone Bitart ([place] (5/325)) 2 tab Q6H PRN PO SEVERE PAIN LEVEL 7-10; Start 03/14/16 at 11:30 Morphine Sulfate (morphine) 2 mg Q4H PRN IV SEVERE PAIN LEVEL 7-10 Last administered on 03/14/16 17:43; Admin Dose 2 MG; Start 03/14/16 at 11:30 Bisacodyl (Dulcolax Supp) 10 mg DAILY PRN [place] CONSTIPATION; Start 03/14/16 at 11 :30 Pantoprazole (Protonix Iv) 40 mg DAILY@06 IV Last administered on 03/15/16 05: 26; Admin Dose 40 MG; Start 03/15/16 at 06:00 FLAKITA CHUNG Mar 15, 2016 10:55
--- NOTE | 2016-03-15 11:26 | PN ---
Date/Time of Note Date/Time of Note DATE: 03/15/16 TIME: 11:24 Assessment/Plan Lines/Catheters IV Catheter Type (from Nrsg): Peripheral IV Sorto in Place (from Nrsg): No Assessment/Plan Assessment/Plan 30-year-old female with small bowel obstruction likely secondary to adhesions from prior surgery * Patient is currently comfortable, therefore, we'll continue with conservative management * Continue NG tube, IV fluid hydration, pain control as needed * Small bowel follow-through in progress. We will follow up. Further recommendations will be made based on the patient's clinical course and results of diagnostic studies. Subjective 24 Hr Interval Summary Abdominal pain improved. Currently denies abdominal pain. No bowel movement or flatus as of yet. Afebrile. NG tube output 250 mL. Exam/Review of Systems Vital Signs Vitals Vital Signs Date Time Temp Pulse Resp B/P Pulse Ox O2 Delivery O2 Flow Rate FiO2 03/15/16 08:50 97.2 70 18 120/82 99 Room Air Intake and Output 03/14/16 03/14/16 03/15/16 15:00 23:00 07:00 Intake Total 2960 ml 1000 ml Output Total 1450 ml Balance 2960 ml -450 ml Exam Free Text/Dictation GENERAL: Awake, alert, oriented 3. No acute distress. CARDIOVASCULAR: S1S2, regular rate and rhythm. No murmurs appreciated. RESPIRATORY: Clear to auscultation bilaterally. ABDOMEN: Soft, bowel sounds hypoactive, nondistended, nontender to palpation. EXTREMITIES: Free range of motion 4. No cyanosis, edema, or clubbing. Results Result Diagram: 03/15/16 0525 03/15/16 0525 KILO PORTER MD Mar 15, 2016 11:26
--- NOTE | 2016-03-15 14:26 | RADRPT ---
PROCEDURE: Small bowel follow-through. CLINICAL INDICATION: Abdomen pain. TECHNIQUE: Water-soluble contrast was administered via the nasogastric tube and several spot and o verhead radiographs of the abdomen were obtained. COMPARISON: None. FINDINGS: A preliminary radiograph, nasogastric tube tip is in the stomach. Surgical clips are present in the right upper quadrant of the abdomen. IUD is present in the pelvis. There is no small bowel displacement or mass. The small bowel folds are normal. Small bowel in the midabdomen is dilated measuring 4 cm in diameter. However, contrast flows throug h the small bowel and into the colon. Transit time is normal with contrast in the colon and rectosigmoid at 4 hours. IMPRESSION: 1. Dilated small bowel in the midabdomen. 2. No evidence of obstruction. 3. Nasogastric tube in satisfactory position. 4. Right upper quadrant surgery. IUD in the pelvis. RPTAT: QQ .Otf Ceron MD, MD Date Time Electronically viewed and signed by .Otf Ceron MD, on 03/15/2016 14:26 .R/
[2016-03-15] MEDS ORDERED: TRAM50TA2 PO (15:00)
--- NOTE | 2016-03-15 15:02 | PDOCDIS ---
Discharge Instructions DIAGNOSIS Discharge Diagnosis: small bowel obstruction CONDITION Patient Condition: Stable HOME CARE INSTRUCTIONS: Diet Instructions: Low Fat /Cholesterol ACTIVITY: Activity Restrictions: No Restrictions FOLLOW UP/APPOINTMENTS Appointments 1. Follow up with your primary care provider in one week FLAKITA CHUNG Mar 15, 2016 15:02
--- NOTE | 2016-03-15 18:06 | QN ---
Documentation Comment Small bowel follow-through results noted. Contrast passes into colon. Patient feels better and is now having bowel movements. Will DC NG tube and start on clear liquids. KILO PORTER MD Mar 15, 2016 18:06
[2016-03-15 19:00] VITALS: BP 131/74; RESP 18
[2016-03-16] MEDS: PANTOPRAZOLE 40 MG INJ IV SCH (05:33)
[2016-03-16] MEDS: D5W-0.45 NACL + KCL 20 MEQ 1,000 ML IV SCH (07:00)
[2016-03-16 07:22] VITALS: BP 90/54; RESP 18
[2016-03-16 08:21] LABS: BASOPHIL # 0.1 10^3/ul (0.0-0.1); BASOPHILS % 0.8 % (0.0-2.0); EOSINOPHILS # 0.1 10^3/ul (0.0-0.5); EOSINOPHILS % 1.9 % (0.0-7.0); HEMATOCRIT 38.3 % (37.0-47.0); HEMOGLOBIN 12.8 g/dl (12.0-16.0); LYMPHOCYTES # 2.8 10^3/ul (0.8-2.9); MEAN CORPUSCULAR HEMOGLOBIN 29.5 pg (29.0-33.0); MEAN CORPUSCULAR HGB CONC 33.3 g/dl (32.0-37.0); MEAN CORPUSCULAR VOLUME 88.6 fl (82.0-101.0); MEAN PLATELET VOLUME 8.8 fl (7.4-10.4); MONOCYTE # 0.6 10^3/ul (0.3-0.9); MONOCYTES % 8.2 % (0.0-11.0); NEUTROPHIL # 3.4 10^3/ul (1.6-7.5); NEUTROPHILS % 49.1 % (39.0-77.0); PLATELET COUNT 341 10^3/UL (140-440); RED BLOOD COUNT 4.32 10^6/ul (4.20-5.40); RED CELL DISTRIBUTION WIDTH 13.9 % (11.5-14.5); UNCORRECTED WBC 6.9 10^3/ul (4.8-10.8); WHITE BLOOD COUNT 6.9 10^3/ul (4.8-10.8)
[2016-03-16 08:27] LABS: POTASSIUM 4.2 mmol/L (3.5-5.1)
[2016-03-16 08:29] LABS: CREATININE 0.67 mg/dl (0.44-1.00)
[2016-03-16 08:30] LABS: CALCIUM 9.1 mg/dl (8.4-10.2)
[2016-03-16 08:34] LABS: CONDITION 1
--- NOTE | 2016-03-16 09:04 | PN ---
Date/Time of Note Date/Time of Note DATE: 03/16/16 TIME: 09:01 Assessment/Plan Lines/Catheters IV Catheter Type (from Nrs): Peripheral IV Sorto in Place (from Nrs): No Assessment/Plan Assessment/Plan 30-year-old female with small bowel obstruction likely secondary to adhesions from prior surgery * Resolved * Small bowel follow-through shows contrast in the colon with regular transit time. * Advance to regular diet * Surgically stable for discharge home if tolerates diet and medically cleared Discussed with patient and primary care team. Subjective 24 Hr Interval Summary Doing well. Denies abdominal pain. Tolerating clear liquids. Afebrile. Having bowel movements. Exam/Review of Systems Vital Signs Vitals Vital Signs Date Time Temp Pulse Resp B/P Pulse Ox O2 Delivery O2 Flow Rate FiO2 03/16/16 07:22 97.7 59 18 90/54 95 03/15/16 08:50 Room Air Intake and Output 03/15/16 03/15/16 03/16/16 15:00 23:00 07:00 Intake Total 1000 ml 900 ml 2320 ml Output Total 1300 ml Balance 1000 ml 900 ml 1020 ml Exam Free Text/Dictation GENERAL: Awake, alert, oriented 3. No acute distress. CARDIOVASCULAR: S1S2, regular rate and rhythm. No murmurs appreciated. RESPIRATORY: Clear to auscultation bilaterally. ABDOMEN: Soft, bowel sounds present, nondistended, nontender to palpation. EXTREMITIES: Free range of motion 4. No cyanosis, edema, or clubbing. Results Result Diagram: 03/16/16 0748 03/16/16 0748 KILO PORTER MD Mar 16, 2016 09:04
--- NOTE | 2016-03-16 12:45 | DS ---
Date/Time of Note Date/Time of Note DATE: 03/16/16 TIME: 12:42 Discharge Summary Admission/Discharge Info Admit Date/Time Mar 14, 2016 at 10:34 Discharge Date/Time Final Diagnosis 1. Small bowel obstruction Patient Condition: Stable Consults 1. Dr. Yo Conte Hx of Present Illness This is a 30-year-old female with past medical history of cholecystectomy, small bowel volvulus in compensation consultant, who came to [facility] due to reports of abdominal pain. Upon. Patient she had sudden sharp abdominal pain after dinner last night. Reports she was eating home food and shortly after started to have sharp pains in her stomach that was diffuse. She did have reported emesis associated with it nonbilious nonbloody. She did report also some subjective chills. She did go to [facility] for further evaluation. Upon examination she had a CT scan of her abdomen that did show mid to distal small bowel obstruction. Her CBC and BMP was otherwise unremarkable. She did remain afebrile. Currently the patient does have nasogastric place. She is continued on IV fluids. We will alert her for the aforementioned issues Hospital Course This is a 30-year-old female with history of cholecystectomy, small bowel volvulus and compensation consultant, who came to [facility] due to reports of abdominal pain. According to report patient had sudden abdominal pain after eating dinner the night prior to admission. She did report that it progressively got worse and she subsequently into [facility] for further evaluation. She did have a CT scan of her abdomen that did show a mid to distal small bowel obstruction. She was seen by general surgeon and she did have NG tube in place to low intermittent suction. We did keep her npo and did provide her with IV fluids and analgesics as needed. We did eventually do small bowel follow-through for the patient which showed no bowel obstruction. Patient did report resolution of her abdominal pain and we did start diet unclear liquid diet and gradually increased to regular food. She did tolerate well. She was instructed to follow-up with her primary care provider within a week. During her course of stay she did improve. The plan of care was discussed with patient and patient did verbalize her understanding. On the day of discharge patient was in stable condition Discharge process time is 40 minutes Discussed plan of care with Dr. Naghdechi Disposition: Home Home Meds Discontinued Reported Medications [Denies Meds] No Conflict Check 07/16/10 Discontinued Scripts Famotidine* (Pepcid*) 20 Mg Tablet, 20 MG PO BID, #30 TAB Prov:GARY HENSON PA-C 11/12/15 Diphenhydramine Hcl* (Benadryl*) 25 Mg Cap, 25 MG PO Q6, #30 CAP Prov:GARY HENSONBrandyn 11/12/15 Epinephrine (Epipen 2-Ytree) 0.3 Mg/0.3 Ml Pen.injctr, 1 EA INJ ONCE Y for ALLERGIC REACTION, #1 EA Prov:GARY HENSON PA-C 11/12/15 Prednisone* (Prednisone*) 20 Mg Tab, 40 MG PO DAILY for 5 Days, TAB Prov:GARY HENSON PA-C 11/12/15 Albuterol Sulfate* (Ventolin HFA*) 18 Gm Hfa.aer.ad, 2 PUFF INHALATION Q4H, #1 INHALER Prov:GARY HENSON PA-C 11/12/15 Follow-up Plan CONDITION Patient Condition: Stable HOME CARE INSTRUCTIONS: Diet Instructions: Low Fat /Cholesterol ACTIVITY: Activity Restrictions: No Restrictions FOLLOW UP/APPOINTMENTS Appointments 1. Follow up with your primary care provider in one week Pending Labs Laboratory Tests Test 03/16/16 07:48 Anion Gap 16 (8-16) Basophils # 0.110^3/ul (0.0-0.1) Basophils % 0.8% (0.0-2.0) Blood Urea Nitrogen 4mg/dl (7-20) Calcium Level 9.1mg/dl (8.4-10.2) Carbon Dioxide Level 28mmol/L (21-31) Chloride Level 103mmol/L (97-110) Creatinine 0.67mg/dl (0.44-1.00) Eosinophils # 0.110^3/ul (0.0-0.5) Eosinophils % 1.9% (0.0-7.0) Glucose Level 92mg/dl (70-220) Hematocrit 38.3% (37.0-47.0) Hemoglobin 12.8g/dl (12.0-16.0) Lymphocytes # 2.810^3/ul (0.8-2.9) Lymphocytes % 40.0% (15.0-51.0) Mean Corpuscular Hemoglobin 29.5pg (29.0-33.0) Mean Corpuscular Hemoglobin Concent 33.3g/dl (32.0-37.0) Mean Corpuscular Volume 88.6fl (82.0-101.0) Mean Platelet Volume 8.8fl (7.4-10.4) Monocytes # 0.610^3/ul (0.3-0.9) Monocytes % 8.2% (0.0-11.0) Neutrophils # 3.410^3/ul (1.6-7.5) Neutrophils % 49.1% (39.0-77.0) Nucleated Red Blood Cells # 0.010^3/ul (0.0-0.0) Nucleated Red Blood Cells % 0.0/100WBC (0.0-0.0) Platelet Count 78111^3/UL (140-440) Potassium Level 4.2mmol/L (3.5-5.1) Red Blood Count 4.3210^6/ul (4.20-5.40) Red Cell Distribution Width 13.9% (11.5-14.5) Sodium Level 143mmol/L (135-144) White Blood Count 6.910^3/ul (4.8-10.8) FLAKITA CHUNG Mar 16, 2016 12:44
== END 2016-03-16 16:00 | disposition home or self-care (01) | DRG 390 ==
LOC: FTE 08:19 → MS2 10:34
PROVIDERS: ADMIT Hospitalist; ATTEND Hospitalist
DX: K56.60 Unspecified intestinal obstruction (principal)
CPT/HCPCS: 36415; 74176; 74250; 80048; 80053; 80061; 81001; 81003; 83036; 83690; 83735; 84100; 84436; 84443; 84479; 85025; 85610; 93005; 96361; 96374; 96375; 96376; C9113; J2270; J2405; J3480; J7030

== ENCOUNTER 2016-09-25 00:49 | Emergency (ER) | payer OTHER ==
[~2016-09-25] VITALS: Ht 170.2 cm; Wt 85.5 kg
[~2016-09-25 00:49] MED LIST changes: -ALBU18HF INHALATION; -BEN25 PO; -DENIES MEDS; -EPIN0.3P4 INJ; -FAMO-18 PO; -PRED20TA PO; +TRAM50TA2 PO
[2016-09-25 00:53] VITALS: Ht 170.2 cm; Wt 85.5 kg
--- NOTE | 2016-09-25 01:00 | ERA ---
ER Documentation Chief Complaint Date/Time DATE: 09/25/16 TIME: 01:00 Chief Complaint allergic reaction fr, unknown substance, both eye swelling, sob HPI The patient is a 40-year-old female, presenting to the ER because of upper and lower eyelid swollen about 30 minutes prior to arrival. She denies blurred vision, diplopia, had similar symptoms previously, denies any new makeup, new perfumes, new lotion. She de denies dysarthria, dysphonia, dyspnea, chest pain , abdominal pain, vomiting. She does not smoke or drink Past medical history: Asthma Past Surgical history: Cholecystectomy ROS All systems reviewed and are negative except as per history of present illness. Medications Home Meds Active Scripts Famotidine* (Famotidine*) 20 Mg Tablet, 20 MG PO DAILY, #7 TAB Prov:KILO RAMIREZ MD 09/25/16 Prednisone* (Prednisone*) 20 Mg Tab, 60 MG PO DAILY for 5 Days, TAB Prov:KILO RAMIREZ MD 09/25/16 Diphenhydramine Hcl* (Benadryl*) 50 Mg Cap, 50 MG PO Q6 Y for ITCHING, #30 CAP Prov:KILO RAMIREZ MD 09/25/16 Epinephrine (Epipen 2-Tyree) 0.3 Mg/0.3 Ml Pen.injctr, 1 EA INJ ONCE Y for ALLERGIC REACTION, #1 EA Prov:KILO RAMIREZ MD 09/25/16 Tramadol HCl (Tramadol HCl) 50 Mg Tablet, 50 MG PO Q6H Y for PAIN, #30 TAB Prov:FLAKITA CHUNG 03/15/16 Reported Medications Diphenhydramine Hcl* (Allergy Relief*) 12.5 Mg/5 Ml Liquid, 25 MG PO HS, #120 ML 09/25/16 Allergies Allergies: Coded Allergies: shrimp (Unverified Allergy, Severe, 09/25/16) DIFFICULTIES OF BREATHING Uncoded Allergies: PEANUTS (Allergy, Severe, 09/25/16) PMhx/Soc History of Surgery: Yes (2011) Anesthesia Reaction: No Hx Neurological Disorder: No Hx Respiratory Disorders: Yes (ASTHMA) Hx Cardiac Disorders: No Hx Psychiatric Problems: No Hx Miscellaneous Medical Probl: No Hx Alcohol Use: No Hx Substance Use: No Hx Tobacco Use: No Physical Exam Vitals Vital Signs Date Time Temp Pulse Resp B/P Pulse Ox O2 Delivery O2 Flow Rate FiO2 09/25/16 00:53 97.8 93 20 151/102 97 Physical Exam Const: No acute distress. Head: Atraumatic. Eyes: Normal Conjunctiva. ENT: Normal External Ears, Nose and Mouth. Upper eyelid edematous, no eye discharge, no nystagmus, no edematous uvula or tongue Neck: Full range of motion. No meningismus. Resp: Clear to auscultation bilaterally. Cardio: Regular rate and rhythm. Abd: Soft, non distended, normal bowel sounds, non tender. Skin: No petechiae or rashes. Back: No midline or flank tenderness. Ext: No cyanosis, or edema. Neur: Awake and alert. No focal deficit Psych: Normal Mood and Affect. Results 24 hrs Current Medications Medications (Trade) Dose Ordered Sig/Lori Route PRN Reason Start Time Stop Time Status Last Admin Dose Admin Diphenhydramine HCl (Benadryl) 50 mg ONCE ONCE IV 09/25/16 01:30 09/25/16 01:31 DC 09/25/16 01:21 Famotidine (Pepcid Iv) 20 mg ONCE ONCE IV 09/25/16 01:30 09/25/16 01:31 DC 09/25/16 01:21 Methylprednisolone Sodium Succinate (Solu-Medrol) 125 mg ONCE ONCE IV 09/25/16 01:30 09/25/16 01:31 DC 09/25/16 01:21 Procedures/MDM MEDICAL MAKING DECISION: The patient is a 40-year-old female, presenting with acute anaphylaxis. She was treated with Solu-Medrol 125 mg IV, Benadryl 50 mg IV, Pepcid 20 mg IV with good response. She was observed in the ER for many hours with almost complete resolution of the symptoms Departure Diagnosis: Primary Impression: Acute anaphylaxis Condition: Good Comments She was discharged with EpiPen, Benadryl, prednisone, Pepcid I discussed the findings with the patient. I advised the patient to follow-up with the primary physician in about 1-2 days, sooner if needed and return if any concern. The patient's blood pressure was elevated (>120/80) but appears stable without evidence of hypertension emergency or urgency. The patient was counseled about the risks of hypertension and urged to pursue outpatient monitoring and therapy within a week with their primary care physician. KILO RAMIREZ MD Sep 25, 2016 01:00
[2016-09-25] MEDS ORDERED: FAMOTIDINE 20 MG INJ IV ONE (01:30)
[2016-09-25] MEDS ORDERED: DIPHENHYDRAMINE 50 MG INJ IV ONE (01:30)
[2016-09-25] MEDS ORDERED: METHYLPREDNISOLONE 125 MG INJ IV ONE (01:30)
[2016-09-25] MEDS ORDERED: [UNRECOGNIZED DRUG - CODE] PO (01:37)
[2016-09-25] MEDS ORDERED: EPIN0.3P4 INJ (04:35)
[2016-09-25] MEDS ORDERED: FAMO20TA18 PO (04:36)
[2016-09-25] MEDS ORDERED: PRED20TA PO (04:36)
[2016-09-25] MEDS ORDERED: BEN50 PO (04:36)
[2016-09-25 04:53] VITALS: BP 111/60; PULSE 85; RESP 18; TEMP 98.6
== END 2016-09-25 04:56 | disposition home or self-care (01) ==
LOC: E/R 00:49
DX: T78.2XXA Anaphylactic shock, unspecified, initial encounter (principal); J45.909 Unspecified asthma, uncomplicated
CPT/HCPCS: 96374; 96375; J1200; J2930; Z7502; Z7610

== ENCOUNTER 2017-06-03 20:29 | Emergency (ER) | END 2017-06-04 05:07 | disposition home or self-care (01) ==

== ENCOUNTER → 2017-07-19 | Outpatient (CLI) | END | disposition home or self-care (01) ==

== ENCOUNTER 2017-07-20 15:25 | Day surgery (SDC) | END 2017-07-20 21:25 | disposition home or self-care (01) ==

== ENCOUNTER → 2017-11-15 | Outpatient (CLI) | END | disposition home or self-care (01) ==

== ENCOUNTER 2018-10-30 19:45 | Emergency (ER) | payer OTHER ==
[~2018-10-30] VITALS: Ht 172.7 cm; Wt 88.1 kg
[~2018-10-30 19:45] MED LIST changes: +ALBU18HF INHALATION; +BEN25 PO; +BEN50 PO; +EPIN0.3P4 IM; +EPIN0.3P4 INJ; +FAMO-96 PO; +FAMO20TA18 PO; +NAPH15DR OP; +PRED20TA PO; +ZOF8 PO; +[UNRECOGNIZED DRUG - CODE] PO
[2018-10-30 19:51] VITALS: Ht 172.7 cm; Wt 88.1 kg
[2018-10-30] MEDS ORDERED: DEXAMETHASONE 4 MG TAB PO ONE (21:30)
[2018-10-30] MEDS ORDERED: DIPHENHYDRAMINE 25 MG CAP PO ONE (21:30)
[2018-10-30] MEDS ORDERED: OPHTHALMIC IRRIG SOLUTION 120 ML LEFT EYE ONE (21:30)
[2018-10-30 23:22] VITALS: BP 112/69; PULSE 66; RESP 18
== END 2018-10-30 23:30 | disposition home or self-care (01) ==
LOC: FTE 19:45
DX: H10.32 Unspecified acute conjunctivitis, left eye (principal)
CPT/HCPCS: Z7502; Z7610; 99283